=== PATIENT | male | born 1960 | race Caucasian/White ===

== ENCOUNTER 2020-08-31 18:06 | Emergency (ER) | payer MEDICAID ==
[~2020-08-31] VITALS: Ht 188 cm; Wt 79.0 kg
[2020-08-31] MEDS ORDERED: HYDROcodone/APAP 5/325 TABLET PO ONE (19:00)
[2020-08-31] MEDS ORDERED: HYDROcodone/APAP 5/325 TABLET ONE (19:13)
--- NOTE | 2020-08-31 19:14 | NUR ---
PT MEDICATED PER MAR.
--- NOTE | 2020-08-31 19:16 | NUR ---
TASK RN: PT VSS AND UPDATED IN EMR.
[2020-08-31] MEDS ORDERED: OMNIPAQUE 350 MG/ML, 100ML BOTTLE ONE (20:00)
--- NOTE | 2020-08-31 20:05 | NUR ---
Friend Ja Osborn will come corn picker, .
[2020-08-31 21:52] VITALS: BP 115/61
== END 2020-08-31 21:53 | disposition home or self-care (01) ==
LOC: ED 21:04
DX: S83.92XA Sprain of unspecified site of left knee, initial encounter (principal); M25.462 Effusion, left knee; M25.062 Hemarthrosis, left knee; I10 Essential (primary) hypertension; E78.00 Pure hypercholesterolemia, unspecified; Z86.73 Personal history of transient ischemic attack (TIA), and cerebral infarction without residual deficits; V19.9XXA Pedal cyclist (driver) (passenger) injured in unspecified traffic accident, initial encounter; Y93.89 Activity, other specified; Y92.410 Unspecified street and highway as the place of occurrence of the external cause; Y99.8 Other external cause status
CPT/HCPCS: 29505; 73080; 73564; 73700; 73706; 99285; Q9967